=== PATIENT | male | born 1985 | race Caucasian/White ===

== ENCOUNTER 2017-01-19 09:44 | Day surgery (SDC) | payer BC, OTHER ==
[2017-01-16 13:29] VITALS: BMI 31.6
[~2017-01-19 09:44] MED LIST: DEXAMETHASONE SOD PHOSPHATE 10 MG/ML 1 ML VIAL IV ONE; HEPARIN SODIUM,PORCINE 5,000 UNIT/ML 1 ML VIAL SQ ONE; HYDROmorphone 1 MG/ML 1 ML SYRINGE IVP PRN; LACTATED RINGERS 1,000 ML IV SCH; MIDAZOLAM 2 MG/2 ML VIAL IV PRN; ONDANSETRON 4 MG/2 ML VIAL IVP ONE; Pre Op ABX Message 1 EACH MISC MISCELLANE ONE; SCOPOLAMINE 1.5MG/72HR PATCH TRANSDERM ONE
--- NOTE | 2017-01-19 11:28 | P.GSHP ---
History of Present Illness H&P Date: 01/19/17 Chief Complaint: Right groin chronic skin wound Is a 31-year-old male who presents today for excision of a right groin skin wound. Patient has lost in excess 100 pounds several years ago he had an abdominoplasty performed at an outside facility several years ago. He is developed a chronic skin wound at the lateral part of his transverse skin incision. Patient presents today for abdominal wall debridement. - Constitutional Constitutional: Reports as per HPI Past Medical History Past Medical History: No Reported History Additional Past Medical History / Comment(s): TINNITUS, STATES HX OF ABDOMINALPLASTY SURGERY (?2008) AND HAS INFECTION WITH DRAINAGE FROM INCISION. History of Any Multi-Drug Resistant Organisms: None Reported Additional Past Surgical History / Comment(s): ABDOMINALPLASTY (?2008) Past Anesthesia/Blood Transfusion Reactions: No Reported Reaction Past Psychological History: No Psychological Hx Reported Smoking Status: Never smoker Past Alcohol Use History: Rare Past Drug Use History: None Reported - Past Family History Sister(s) Family Medical History: Cancer Additional Family Medical History / Comment(s): CANCER UNDER NAILBED Medications and Allergies Home Medications Medication Instructions Recorded Confirmed Type Pre-Work Out Supplement 1 tab PO DAILY 01/16/17 01/19/17 History Allergies Allergy/AdvReac Type Severity Reaction Status Date / Time No Known Allergies Allergy Verified 01/19/17 10:42 Surgical - Exam Vital Signs Temp Pulse Resp BP Pulse Ox 97.7 F 78 18 144/77 98 01/19/17 10:49 01/19/17 10:49 01/19/17 10:49 01/19/17 10:49 01/19/17 10:49 - General well developed, no distress - Eyes PERRL - ENT normal pinna - Neck no masses - Respiratory normal expansion - Cardiovascular Rhythm: regular - Abdomen Right lateral scar shows evidence of a chronic wound. There is tracking approximately 3 cm above the draining sinus. Abdomen: soft, non tender Assessment and Plan Plan: Right abdominal wall wound. We'll perform excisional debridement
[2017-01-19] MEDS ORDERED: BUPIVACAINE (PF) 0.25% 30 ML VIAL SQ ONE ×2 (11:37→12:05)
[2017-01-19] MEDS ORDERED: PROPOFOL 10 MG/ML 20 ML VIAL IV ONE (11:48)
[2017-01-19] MEDS ORDERED: MIDAZOLAM 2 MG/2 ML VIAL ONE (11:48)
[2017-01-19] MEDS ORDERED: fentaNYL (PF) 50 MCG/ML 2 ML AMP ONE (11:48)
[2017-01-19] MEDS ORDERED: SODIUM CHLORIDE 0.9% 50 ML with ceFAZolin 2,000 MG IV ONE ×2 (11:55)
--- NOTE | 2017-01-19 12:19 | P.OP ---
Date of Procedure: 01/19/17 Preoperative Diagnosis: Abdominal wall abscess Postoperative Diagnosis: Abdominal wall abscess Procedure(s) Performed: Incision and drainage of abdominal wall abscess with removal of infected Prolene stitch Anesthesia: MAC Surgeon: Brock Yoon Estimated Blood Loss (ml): 5 Pathology: other (Abdominal wall debridement, infected stitch) Condition: stable Disposition: PACU Description of Procedure: The patient's placed on the operating table in supine position. He received IV sedation. His abdomen was prepped and draped usual fashion. There is a draining sinus in the right lower quadrant. The skin was anesthetized 1% local Xylocaine. This was probed with a hemostat there appeared to be extension of the sinus underneath the skin a prostate 5 cm away. The skin was unroofed using sharp dissection and left cautery. There was a Prolene stitch seen. This was removed the stitch measured approximately 10 cm length. The area of the abscess cavity was debrided sharply with a 15 blade and some tissue was sent to pathology. The wound was then packed with Nu Gauze. Patient was sent to recovery in stable condition.
[2017-01-19 12:25] VITALS: TEMP 97.4
[2017-01-19 12:46] VITALS: RESP 16
[2017-01-19 13:08] VITALS: BP 120/61; PULSE 79
== END 2017-01-19 13:28 | disposition home or self-care (01) ==
LOC: OR 09:44
PROVIDERS: ATTEND Surgery
DX: L02.211 Cutaneous abscess of abdominal wall (principal); M79.5 Residual foreign body in soft tissue
CPT/HCPCS: 88304; 10060; J2250; J1644; J1100; J2405; J0690; J3010; J2704